=== PATIENT | male | born 1965 | race Caucasian/White ===

== ENCOUNTER → 2019-08-22 | Outpatient (CLI) | payer OTHER | LOC: CAT 15:09 | DX: Z13.6 Encounter for screening for cardiovascular disorders (principal); I25.10 Atherosclerotic heart disease of native coronary artery without angina pectoris; E78.00 Pure hypercholesterolemia, unspecified ==

== ENCOUNTER → 2019-08-26 | Outpatient (CLI) | payer OTHER | LOC: ULTRA 07:50 | DX: I77.819 Aortic ectasia, unspecified site (principal) ==